=== PATIENT | female | born 1955 | race African-American/Black ===

== ENCOUNTER 2017-08-28 08:51 | Outpatient (CLI) | payer BC | END 2017-08-28 08:52 | disposition home or self-care (01) | LOC: BICMAMMO 08:51 | PROVIDERS: ATTEND Family Medicine | DX: Z12.31 Encounter for screening mammogram for malignant neoplasm of breast (principal) | CPT/HCPCS: 77063; 77067 ==

== ENCOUNTER 2019-01-30 08:32 | Outpatient (CLI) | payer BC ==
--- NOTE | 2019-01-30 09:15 | MMO ---
Bilateral MAMMO Bilat Screen [facility]. CLINICAL HISTORY: Patient is 63 years old and is seen for screening. The patient has no family history of breast cancer. The patient has no personal history of cancer. VIEWS: The views performed were: bilateral craniocaudal with tomosynthesis and bilateral mediolateral oblique with tomosynthesis. FILMS COMPARED: The present examination has been compared to a prior imaging study performed at [facility] on 08/28/2017. This study has been interpreted with the assistance of computer-aided detection. MAMMOGRAM FINDINGS: There are scattered fibroglandular densities. There are no suspicious masses, suspicious calcifications, or new areas of architectural distortion. IMPRESSION: THERE IS NO MAMMOGRAPHIC EVIDENCE OF MALIGNANCY. A ROUTINE FOLLOW-UP MAMMOGRAM IN 1 YEAR IS RECOMMENDED. THE RESULTS OF THIS EXAM WERE SENT TO THE PATIENT. ACR BI-RADS Category 1 - Negative MAMMOGRAPHY NOTE: 1. A negative mammogram report should not delay a biopsy if a dominant of clinically suspicious mass is present. 2. Approximately 10% to 15% of breast cancers are not detected by mammography. 3. Adenosis and dense breasts may obscure an underlying neoplasm. Reported by: MICHELLE LAURENT MD Electonically Signed: [id number]
== END 2019-01-30 08:33 | disposition home or self-care (01) ==
LOC: BICMAMMO 08:32
PROVIDERS: ATTEND Family Medicine
DX: Z12.31 Encounter for screening mammogram for malignant neoplasm of breast (principal)
CPT/HCPCS: 77063; 77067

== ENCOUNTER 2020-07-21 09:18 | Outpatient (CLI) | payer BC | END 2020-07-21 09:19 | disposition home or self-care (01) | LOC: BICRAD 09:18 | PROVIDERS: ATTEND Family Medicine | DX: M25.511 Pain in right shoulder (principal); M79.661 Pain in right lower leg; M47.816 Spondylosis without myelopathy or radiculopathy, lumbar region; M43.16 Spondylolisthesis, lumbar region; M19.011 Primary osteoarthritis, right shoulder | CPT/HCPCS: 72100 ==

== ENCOUNTER 2021-04-13 09:48 | Outpatient (CLI) | payer MEDICARE | END 2021-04-13 09:49 | disposition home or self-care (01) | LOC: BICMAMMO 09:48 | PROVIDERS: ATTEND Family Medicine | DX: Z12.31 Encounter for screening mammogram for malignant neoplasm of breast (principal); Z13.820 Encounter for screening for osteoporosis; Z78.0 Asymptomatic menopausal state; M85.852 Other specified disorders of bone density and structure, left thigh; M85.851 Other specified disorders of bone density and structure, right thigh | CPT/HCPCS: 77063; 77067; 77080 ==

== ENCOUNTER 2021-09-15 11:10 | Outpatient (CLI) | payer MEDICARE | END 2021-09-15 11:11 | disposition home or self-care (01) | LOC: BICRAD 11:10 | PROVIDERS: ATTEND Family Medicine | DX: M25.551 Pain in right hip (principal) ==

== ENCOUNTER 2022-01-26 13:01 | Outpatient (CLI) | payer MEDICARE | END 2022-01-26 13:02 | disposition home or self-care (01) | LOC: TBSIIMAG 13:01 | PROVIDERS: ATTEND Neurological Surgery | DX: M47.26 Other spondylosis with radiculopathy, lumbar region (principal); M51.16 Intervertebral disc disorders with radiculopathy, lumbar region; M51.17 Intervertebral disc disorders with radiculopathy, lumbosacral region | CPT/HCPCS: 72120; 72148 ==

== ENCOUNTER 2022-04-28 06:14 | Observation (INO) | payer MEDICARE ==
[2022-04-28 07:21] LABS: Hemoglobin 11.3 g/dL (12.0-16.0); Mean Corpuscular HGB CONC 33.3 g/dL (32.0-36.0); Mean Corpuscular Hemoglobin 27.2 pg (27.0-31.0); Mean Corpuscular Volume 81.8 fl (78.0-98.0); Mean Platelet Volume 7.5 fL (7.4-10.4); Platelet Count 374 10x3/uL (130-400); RBC Distribution Width 14.2 % (11.5-14.5); Red Blood Cell (RBC) Count 4.14 mill/uL (4.20-5.40)
[2022-04-28 07:39] LABS: ALT (SGPT) 8 U/L (8-55); AST (SGOT) 11 U/L (5-34); Albumin 3.7 g/dL (3.4-4.8); Alkaline Phosphatase 117 U/L (40-110); Anion Gap 16 mmol/L (10-20); BUN (Urea Nitrogen) 26 mg/dL (9.8-20.1); Bilirubin, Total 0.3 mg/dL (0.2-1.2); Calc. Creatinine Clearance 0 mL/min (70-130); Calcium 9.3 mg/dL (7.8-10.44); Carbon Dioxide 20 mmol/L (23-31); Chloride 108 mmol/L (98-107); Estimated GFR 58; Globulin 2.8 g/dL (2.4-3.5); Glucose 211 mg/dL (80-115); Potassium 3.8 mmol/L (3.5-5.1); Protein, Total 6.5 g/dL (5.8-8.1); Sodium 140 mmol/L (136-145)
[2022-04-28] MEDS ORDERED: Nitroglycerin 2% Ointment 1 INCH/1 GM Packet ONE (07:47)
[2022-04-28 08:05] LABS: Band 1 % (5-11); Eosinophils 2 % (0-10); Lymphocytes 47 % (21-51); MDiff Complete? YES; Neutrophil 50 % (42-75); Platelet Morphology Comment Appears Adequate; RBC Morphology Normal
[2022-04-28] MEDS ORDERED: Aspirin Chewable 81 MG TAB ONE (10:04)
[2022-04-28] MEDS ORDERED: Ondansetron PF 4 MG/2 ML Vial IVP PRN (10:09)
[2022-04-28] MEDS ORDERED: Acetaminophen 325 MG TAB PO PRN (10:09)
[2022-04-28] MEDS ORDERED: Ondansetron ODT 4 MG TAB PO PRN (10:09)
[2022-04-28] MEDS ORDERED: Dextrose 50% Abboject 50 ML SYRINGE SLOW IVP PRN (10:24)
[2022-04-28] MEDS ORDERED: HumaLOG 300 UNITS/3 ML VIAL SC PRN ×2 (10:24)
[2022-04-28] MEDS ORDERED: Dextrose 5% in Water 1,000 ML IV PRN (10:24)
[2022-04-28 11:07] LABS: Troponin I 0.014 ng/mL (< 0.028)
[2022-04-28 11:17] LABS: Magnesium 1.5 mg/dL (1.6-2.6)
[2022-04-28] MEDS ORDERED: ADENOSINE 60 MG/20 ML VIAL ONE (11:17)
[2022-04-28 11:18] LABS: Hemoglobin A1c 10.1 % (4.0-6.0)
[2022-04-28 13:55] LABS: Troponin I 0.012 ng/mL (< 0.028)
[2022-04-28 17:36] VITALS: BMI 41.3
[2022-04-29 05:24] LABS: #Basophils 0.1 thou/uL (0.0-0.2); #Eosinphils 0.3 thou/uL (0.0-0.7); #Lymphocytes 3.9 thou/uL (1.20-3.40); #Monocytes 0.7 thou/uL (0.11-0.59); #Neutrophils 5.3 thou/uL (1.40-6.50); %Basophils 0.5 % (0.0-1.0); %Eosinophils 2.5 % (0.0-10.0); %Lymphocytes 38.4 % (21.0-51.0); %Monocytes 6.7 % (0.0-10.0); %Neutrophils 51.9 % (42.0-75.0); Hemoglobin 10.2 g/dL (12.0-16.0); Mean Corpuscular HGB CONC 33.4 g/dL (32.0-36.0); Mean Corpuscular Hemoglobin 27.3 pg (27.0-31.0); Mean Corpuscular Volume 81.9 fl (78.0-98.0); Mean Platelet Volume 7.4 fL (7.4-10.4); Platelet Count 310 10x3/uL (130-400); RBC Distribution Width 14.1 % (11.5-14.5); Red Blood Cell (RBC) Count 3.74 mill/uL (4.20-5.40); White Blood Cell (WBC) Count 10.2 10x3/uL (4.8-10.8)
[2022-04-29 05:40] LABS: Anion Gap 11 mmol/L (10-20); BUN (Urea Nitrogen) 18 mg/dL (9.8-20.1); Calc. Creatinine Clearance 88 mL/min (70-130); Calcium 8.8 mg/dL (7.8-10.44); Carbon Dioxide 24 mmol/L (23-31); Chloride 108 mmol/L (98-107); Estimated GFR 64; Glucose 171 mg/dL (80-115); Potassium 3.9 mmol/L (3.5-5.1); Sodium 139 mmol/L (136-145)
[2022-04-29] MEDS ORDERED: Aspirin Chewable 81 MG TAB PO SCH (09:00)
[2022-04-29] MEDS ORDERED: Hydrochlorothiazide 25 MG TAB PO SCH (10:45)
[2022-04-29] MEDS ORDERED: Losartan 25 MG TAB PO SCH (10:45)
[2022-04-29] MEDS ORDERED: Magnesium Sulfate In Water 4 GM in Premix Bag 1 BAG IVPB SCH (11:00)
[2022-04-29] MEDS ORDERED: Iopamidol-370 76% 500 ML 1 ML ONE (12:00)
[2022-04-29 13:05] VITALS: BP 167/71; TEMP 98.1
[2022-04-29] MEDS ORDERED: Glimepiride 4 MG TAB PO SCH (16:30)
[2022-04-29] MEDS ORDERED: Atorvastatin Calcium 40 MG TAB PO SCH (21:00)
[2022-04-29] MEDS ORDERED: Amlodipine 10 MG TAB PO SCH (21:00)
[2022-04-30] MEDS ORDERED: Losartan 25 MG TAB PO SCH (09:00)
[2022-04-30] MEDS ORDERED: Hydrochlorothiazide 25 MG TAB PO SCH (09:00)
== END 2022-04-29 14:01 | disposition home or self-care (01) ==
LOC: ERS 06:14 → ERHOLD 10:15 → 2SW 17:10
PROVIDERS: ADMIT Internal Medicine; ATTEND Internal Medicine
DX: R07.2 Precordial pain (principal); E83.42 Hypomagnesemia; I11.9 Hypertensive heart disease without heart failure; E11.9 Type 2 diabetes mellitus without complications; E78.00 Pure hypercholesterolemia, unspecified; K22.9 Disease of esophagus, unspecified; E66.9 Obesity, unspecified; Z68.30 Body mass index [BMI] 30.0-30.9, adult; Z79.84 Long term (current) use of oral hypoglycemic drugs; Z79.899 Other long term (current) drug therapy; Z20.822 Contact with and (suspected) exposure to COVID-19
CPT/HCPCS: 71045; 71275; 78452; 80048; 82962 ×2; 83036; 83735; 83880; 84484 ×2; 85025; 93005; 93017; 94760 ×2; 99285; A9500; J3475; U0003; U0005; 36415; 36416; 80053; 84443; 96374; G0378; J0153; Q9967

== ENCOUNTER 2022-07-18 12:13 | Outpatient (CLI) | payer MEDICARE | END 2022-07-18 12:14 | disposition home or self-care (01) | LOC: BICMAMMO 12:13 | PROVIDERS: ATTEND Family Medicine | DX: Z12.31 Encounter for screening mammogram for malignant neoplasm of breast (principal) | CPT/HCPCS: 77063; 77067 ==

== ENCOUNTER 2023-07-23 12:32 | Outpatient (CLI) | payer MEDICARE | END 2023-07-23 12:33 | disposition home or self-care (01) | LOC: BICMAMMO 12:32 | PROVIDERS: ATTEND Family Medicine | DX: Z12.31 Encounter for screening mammogram for malignant neoplasm of breast (principal) | CPT/HCPCS: 77063; 77067 ==

== ENCOUNTER 2024-09-10 13:12 | Outpatient (CLI) | payer MEDICARE | END 2024-09-10 13:13 | disposition home or self-care (01) | LOC: BICMAMMO 13:12 | PROVIDERS: ATTEND Family Medicine | DX: Z12.31 Encounter for screening mammogram for malignant neoplasm of breast (principal) | CPT/HCPCS: 77063; 77067 ==